=== PATIENT | male | born 1935 | race Asian ===

== ENCOUNTER 2017-02-19 12:53 | Inpatient (IN) | payer OTHER, MEDICAID ==
[~2017-02-19] VITALS: Ht 167.6 cm; Wt 63.5 kg
[2017-02-19 13:32] VITALS: BP_SYST 110
[2017-02-19 14:15] LABS: BASOPHILS % (AUTO) 0.3 % (0.0-2.0); EOSINOPHILS % (AUTO) 0.4 % (0.0-4.0); HEMATOCRIT 25.1 % (36-54); HEMOGLOBIN 7.4 g/dL (14.0-18.0); LYMPHOCYTES # (AUTO) 1.1 K/uL (1.0-5.5); LYMPHOCYTES % (AUTO) 18.7 % (20.5-51.5); MEAN CORPUSCULAR HEMOGLOBIN 21 pg (27-31); MEAN CORPUSCULAR HGB CONC 30 % (32-36); MEAN CORPUSCULAR VOLUME 70 fL (79.0-98.0); MONOCYTES # (AUTO) 0.8 K/uL (0.0-1.0); MONOCYTES % (AUTO) 12.5 % (1.7-9.3); NEUTROPHILS # (AUTO) 4.1 K/uL (1.8-7.7); NEUTROPHILS % (AUTO) 68.1 % (40.0-70.0); PLATELET COUNT (AUTO) 541 K/uL (130-430); RED BLOOD CELL COUNT(AUTO) 3.58 MIL/uL (4.2-6.2); RED CELL DISTRIBUTION WIDTH 17.9 % (9.0-15.0)
[2017-02-19 14:20] LABS: BILIRUBIN,URINE NEGATIVE (NEGATIVE); BLOOD, URINE NEGATIVE (NEGATIVE); CLARITY/URINE SL HAZY (CLEAR); COLOR,URINE YELLOW (YELLOW); GLUCOSE,URINE 3+ (NEGATIVE); KETONES,URINE NEGATIVE (NEGATIVE); LEUKOCYTE ESTERASE ,URINE NEGATIVE (NEGATIVE); NITRITE, URINE NEGATIVE (NEGATIVE); PROTEIN URINE NEGATIVE (NEGATIVE); UROBILINOGEN,URINE 0.2 (0.2-1.0)
[2017-02-19 14:26] LABS: BACTERIA,URINE RARE /HPF (None Seen); RBC,URINE 0-3 /HPF (0-3); WBC,URINE 0-3 /HPF (0-3); YEAST,URINE Rare /HPF (None Seen)
[2017-02-19 14:29] LABS: ANION GAP 9 (5-15); CALCIUM 8.9 mg/dL (8.4-11.0); CHLORIDE 102 mmol/L (98-107); CREATININE 0.91 mg/dL (0.55-1.30); GLUCOSE 285 mg/dL (70-99); POTASSIUM 4.4 mmol/L (3.5-5.1); SODIUM SERUM 138 mmol/L (136-145); UREA NITROGEN, BLOOD 21 mg/dL (8-21)
[2017-02-19 14:36] LABS: PROTHROMBIN TIME 9.7 SECS (9.5-12.5)
[2017-02-19 14:37] LABS: ALANINE AMINOTRANSFERASE 16 U/L (12-78); ALBUMIN 3.3 g/dL (3.4-4.8); ASPARTATE AMINOTRANSFERASE 11 U/L (10-37); TOTAL BILIRUBIN 0.1 mg/dL (0.0-1.0)
[2017-02-19 16:06] VITALS: BP_SYST 121
[2017-02-19 16:07] VITALS: BP_SYST 121
[2017-02-19] MEDS ORDERED: ISOS60TA4 PO (17:40)
[2017-02-19] MEDS ORDERED: LIPA1CAP23 PO (17:40)
[2017-02-19] MEDS ORDERED: VALS80TA25 PO (17:40)
[2017-02-19] MEDS ORDERED: ESOM40CA PO (17:40)
[2017-02-19] MEDS ORDERED: SIMV40TA2 PO (17:40)
[2017-02-19] MEDS ORDERED: GABA-529 PO (17:40)
[2017-02-19] MEDS ORDERED: CANA300T PO (17:40)
[2017-02-19] MEDS ORDERED: GLIP-195 PO (17:40)
[2017-02-19] MEDS ORDERED: DOCU250C PO (17:40)
[2017-02-19] MEDS ORDERED: OMEG1CAP55 PO (17:40)
[2017-02-19] MEDS ORDERED: DUTA0.5C PO (17:40)
[2017-02-19] MEDS ORDERED: TAMS-11 PO (17:40)
[2017-02-19] MEDS ORDERED: CLOP75TA2 PO (17:40)
[2017-02-19] MEDS ORDERED: DEXTROSE 50% JECT 50 ML DISP.SYRIN IVP PRN (19:15)
[2017-02-19] MEDS ORDERED: INSULIN REGULAR, HUMAN 100 UNITS/ML, 10 ML VIAL (novoLIN R) SUBCUT PRN (19:15)
[2017-02-19] MEDS: NACL 0.9% 1,000 ML IV SCH (19:33)
[2017-02-19 20:01] VITALS: BP_SYST 104
[2017-02-19] MEDS: PANTOPRAZOLE SODIUM 40 MG/VIAL (PROTONIX) IVP SCH (20:19)
[2017-02-19 22:46] VITALS: BP_SYST 126
[2017-02-20 02:58] LABS: HEMOGLOBIN 9.4 g/dL (14.0-18.0)
[2017-02-20] MEDS: NACL 0.9% 1,000 ML IV SCH (05:38)
[2017-02-20 07:47] VITALS: BP_SYST 182
[2017-02-20] MEDS: PANTOPRAZOLE SODIUM 40 MG/VIAL (PROTONIX) IVP SCH (09:00)
[2017-02-20 10:21] LABS: HEMOGLOBIN 10.1 g/dL (14.0-18.0)
[2017-02-20 10:36] LABS: THYROID STIMULATING HORMONE 3.91 uIu/mL (0.36-3.74)
[2017-02-20 14:17] LABS: TOTAL IRON BIND. CAPACITY 428 ug/dL (250-450)
[2017-02-20] MEDS ORDERED: BISACODYL 5 MG TABLET.DR (DULCOLAX) PO ONE (17:00)
[2017-02-20] MEDS ORDERED: GOLYTELY / COLYTE SOLUTION 4 LITERS PO ONE (18:00)
[2017-02-21 12:11] LABS: FOLATE (FOLIC ACID) 13.1 ng/mL (>3.0)
== END 2017-02-20 09:58 | disposition left against medical advice (07) | DRG 379 ==
LOC: SED 12:53 → STU 15:18
PROVIDERS: ADMIT Internal Medicine Hospice and Palliative Medicine; ATTEND Internal Medicine Hospice and Palliative Medicine
PROC: 30233N1 Transfusion of Nonautologous Red Blood Cells into Peripheral Vein, Percutaneous Approach (ICD-10-PCS; principal; 2017-02-19)
DX: K92.2 Gastrointestinal hemorrhage, unspecified (principal); E11.9 Type 2 diabetes mellitus without complications; D50.9 Iron deficiency anemia, unspecified; I10 Essential (primary) hypertension; N40.0 Benign prostatic hyperplasia without lower urinary tract symptoms; Z53.21 Procedure and treatment not carried out due to patient leaving prior to being seen by health care provider; Z79.899 Other long term (current) drug therapy; Z86.010 Personal history of colon polyps; Z86.73 Personal history of transient ischemic attack (TIA), and cerebral infarction without residual deficits
CPT/HCPCS: 36415; 71010; 80053; 81000-TC; 82607; 82728; 82746; 82962; 83540-TC; 83550-TC; 83615-TC; 83880; 84443-TC; 84484; 85018-TC; 85025; 85610-TC; 85730-TC; 86886; 86900; 86901; 86920; 93005; 99285; C9113; J1815; J7030; J7050; P9021